=== PATIENT | female | born 1985 | race Caucasian/White ===

== ENCOUNTER → 2017-09-25 | Outpatient (CLI) | payer OTHER ==
--- NOTE | 2017-09-25 09:46 | US ---
EXAMINATION TYPE: US transvaginal DATE OF EXAM: 09/25/2017 COMPARISON: NONE CLINICAL HISTORY: N93.8 DUB. Patient complains of multiple periods per month. TECHNIQUE: Transvaginal (TV) Date of LMP: 09/16/17 EXAM MEASUREMENTS: Uterus: 7.3 x 4.8 x 3.1 cm Endometrial Stripe: 0.7 cm Right Ovary: 2.8 x 1.9 x 1.7 cm Left Ovary: 2.6 x 2.2 x 1.9 cm 1. Uterus: cervical nabothian cyst =0.5 x 0.4 x 0.4 cm. left anterior heterogenous possible leiomyom a = 1.3 x 1.3 x 1.2 cm 2. Endometrium: tiny amount of fluid seen within, likely related to the phase of menses. 3. Right Ovary: wnl, with follicles 4. Left Ovary: with follicles and cyst = 1.4 x 1.4 x 1.3 cm 5. Bilateral Adnexa: wnl 6. Posterior cul-de-sac: wnl IMPRESSION: 1. 1.3 cm left inferior probable leiomyoma. This may be subserosal and further evaluation with pelvic MR could be performed. 2. Scant amount of endometrial fluid, likely related to the phase of menses although correlation with beta hCG is recommended. Endometrium is nonenlarged.
[2017-09-25 16:44] LABS: Cardiolipin Ab IgG Interp NEGATIVE (NEGATIVE); Cardiolipin Ab IgM Interp NEGATIVE (NEGATIVE); Cardiolipin IgA Antibody 0.9 U/mL; Cardiolipin IgM Antibody 0.7 U/mL
== END | disposition home or self-care (01) ==
LOC: RADUSWWP 08:23
PROVIDERS: ATTEND Obstetrics & Gynecology
DX: N93.8 Other specified abnormal uterine and vaginal bleeding (principal); A53.9 Syphilis, unspecified
CPT/HCPCS: 36415; 76830; 86038; 86147; 86780

== ENCOUNTER 2018-05-17 18:09 | Emergency (ER) | payer OTHER ==
[2018-05-17 18:40] VITALS: BP 134/73; PULSE 86; RESP 18; TEMP 99.1
--- NOTE | 2018-05-17 19:05 | ED ---
General Adult HPI - General Chief complaint: Extremity Injury, Lower Stated complaint: Knee Swelling, no injury Time Seen by Provider: 05/17/18 18:55 Source: patient, RN notes reviewed Mode of arrival: ambulatory Limitations: no limitations - History of Present Illness Initial comments: This is a 34-year-old female who presents to the emergency department with chief complaint of left knee pain and swelling. Patient states that she woke up with left knee pain on Thursday night. She states that 1 week prior she did fall on the left knee. She denies any other injuries or trauma. She states that she has been bearing weight and ambulating. She states that for work she is on her feet for 8 hours a day. Denies fever, chills, chest pain, shortness of breath, abdominal pain, nausea or vomiting, numbness or tingling, headache or vision changes. - Related Data Home Medications Medication Instructions Recorded Confirmed No Known Home Medications 07/28/15 07/28/15 Allergies Allergy/AdvReac Type Severity Reaction Status Date / Time No Known Allergies Allergy Verified 07/28/15 10:44 Review of Systems ROS Statement: Those systems with pertinent positive or pertinent negative responses have been documented in the HPI. ROS Other: All systems not noted in ROS Statement are negative. Past Medical History Past Medical History: No Reported History Additional Past Medical History / Comment(s): Congenital hip dysplasia. History of Any Multi-Drug Resistant Organisms: None Reported Past Surgical History: Appendectomy, Joint Replacement, Orthopedic Surgery Additional Past Surgical History / Comment(s): RT hip replacement and multiple hip surgeries Past Anesthesia/Blood Transfusion Reactions: No Reported Reaction Past Psychological History: No Psychological Hx Reported Smoking Status: Former smoker Past Alcohol Use History: None Reported Past Drug Use History: None Reported General Exam - General Exam Comments Initial Comments: General: Awake and alert, well-developed; in no apparent distress. HEENT: Head atraumatic, normocephalic. Pupils are equal, round and reactive to light. Extraocular movements intact. Oropharynx moist without erythema or exudate. Neck: Supple. Normal ROM. Cardiovascular: Regular rate and rhythm. No murmurs, rubs or gallops. Chest symmetrical. Respiratory: Lungs clear to auscultation bilaterally. No wheezes, rales or rhonchi. Normal respiratory effort with no use of accessory muscles. Musculoskeletal: Normal range of motion of the left knee. There is generalized soft tissue swelling. Tenderness on palpation of the medial knee. Positive valgus stress. Sensation is intact. Pedal pulses are 2+ equal and palpable bilaterally. Skin: [place], warm and dry without rashes or lesions. Neurological: Alert and oriented x3. CN II-XII grossly intact. Speech is fluent and answers are appropriate. No focal neuro deficits. Psychiatric: Normal mood and affect. No overt signs of depression or anxiety noted. Limitations: no limitations Course Vital Signs 05/17/18 18:38 Temperature 99.1 F Pulse Rate 86 Respiratory 18 Rate Blood Pressure 134/73 O2 Sat by Pulse 96 Oximetry Medical Decision Making - Medical Decision Making This is a 33-year-old female who presents to the emergency department with chief complaint of left knee pain. Patient reports pain and swelling to the left knee. She is bearing weight and ambulating. On physical examination, there is generalized soft tissue swelling and tenderness to the medial left knee. Patient will be provided with a knee immobilizer and follow-up to orthopedics. An x-ray was obtained which revealed no acute abnormalities. Patient's vital signs are stable and she is in no acute distress. She will be discharged home at this time. She is in agreement and voices understanding. All questions were answered. - Radiology Data Radiology results: report reviewed X-ray left knee impression: Negative left knee exam. Disposition Clinical Impression: Left knee pain Disposition: HOME SELF-CARE Condition: Good Instructions: Knee Pain (ED), Knee Immobilizer (ED) Additional Instructions: Please rest, ice, elevate. Please follow-up with orthopedics for further evaluation. Please follow up with primary care provider within 1-2 days. Return to emergency department if symptoms should worsen or any concerns arise. Is patient prescribed a controlled substance at d/c from ED?: No Referrals: None,Stated [Primary Care Provider] - 1-2 days Diogo Cristobal MD [STAFF PHYSICIAN] - 1-2 days Time of Disposition: 19:35
--- NOTE | 2018-05-17 19:19 | XR ---
EXAMINATION TYPE: XR knee complete LT DATE OF EXAM: 05/17/2018 COMPARISON: NONE HISTORY: Knee pain TECHNIQUE: 3 views FINDINGS: I see no fracture nor dislocation. Knee joint spaces are normal. There is no sign of knee j oint effusion. IMPRESSION: Negative left knee exam.
== END 2018-05-17 19:48 | disposition home or self-care (01) ==
LOC: EC 18:09
DX: M25.562 Pain in left knee (principal); Z87.891 Personal history of nicotine dependence
CPT/HCPCS: 99283; 73562; L1830 ×2

== ENCOUNTER → 2020-09-05 | Outpatient (CLI) | payer OTHER ==
--- NOTE | 2020-09-06 10:17 | MM ---
Reason for exam: screening (asymptomatic). Baseline mammogram. History: Family history of breast cancer in paternal grandmother at age 70 and breast cancer in maternal grandmother at age 63. Took hormonal contraceptives for 5 years beginning at age 17. Physical Findings: Nurse Summary: 2cm nodule in the left breast at 3 o'clock (nurse db). [facility] Diagnostic Mammo w CAD WENDI Bilateral CC and MLO view(s) were taken. XCCL view(s) were taken of the right breast. Technologist: Leslie Brower There are scattered fibroglandular densities. There is no discrete abnormality. Palpable marker left breast 3 o'clock. These results were verbally communicated with the patient and result sheet given to the patient on 09/05/20. ASSESSMENT: Incomplete: need additional imaging evaluation, BI-RAD 0 RECOMMENDATION: Ultrasound of the left breast.
--- NOTE | 2020-09-06 10:19 | USB ---
Reason for exam: additional evaluation requested from abnormal screening. History: Family history of breast cancer in paternal grandmother at age 70 and breast cancer in maternal grandmother at age 63. Took hormonal contraceptives for 5 years beginning at age 17. Physical Findings: Breast exam preformed at baseline screening. US Breast Limited LT Technologist: Leslie Brower Left limited breast ultrasound including focal area of concern, retroareolar and axilla demonstrates no cystic or solid lesion seen. Scanned 3-5 o'clock. These results were verbally communicated with the patient and result sheet given to the patient on 09/05/20. ASSESSMENT: Negative, BI-RAD 1 RECOMMENDATION: Routine screening mammogram of both breasts at age 41. (unless clinical indication to start sooner) Manage on a clinical basis with regard to breast pain and any suspicious palpable areas.
== END | disposition home or self-care (01) ==
LOC: RADMAMWWP 14:47
PROVIDERS: ATTEND Obstetrics & Gynecology
DX: N63.20 Unspecified lump in the left breast, unspecified quadrant (principal); R92.8 Other abnormal and inconclusive findings on diagnostic imaging of breast
CPT/HCPCS: 77066

== ENCOUNTER 2021-02-19 19:26 | Emergency (ER) | payer OTHER ==
[2021-02-19 19:35] VITALS: PULSE 69; RESP 18
[2021-02-19] MEDS ORDERED: KETOROLAC 15 MG/ML 1 ML VIAL IVP STA (19:51)
--- NOTE | 2021-02-19 19:53 | ED ---
Chest Pain HPI - General Chief Complaint: Chest Pain Stated Complaint: Chest pain,SOB Time Seen by Provider: 02/19/21 19:41 Source: patient, RN notes reviewed Mode of arrival: ambulatory Limitations: no limitations - History of Present Illness Initial Comments: This a 35-year-old female presents emergency Department chief complaint of chest discomfort. Patient states that she's had chest discomfort which was worse with movement over the last few days. Patient states today she started having discomfort when she takes a deep breath. She states she does not feel short of breath at rest but states it just hurts. She's been taken Tylenol tonight which has been helping. Patient is a nonsmoker no prior cardiac or lung disease. Denies any history of blood clots. No family history of clotting disorders or cardiac disease. Patient denies any fevers chills cough congestion nausea vomiting diarrhea constipation. - Related Data Home Medications Medication Instructions Recorded Confirmed No Known Home Medications 07/28/15 02/19/21 Allergies Allergy/AdvReac Type Severity Reaction Status Date / Time No Known Allergies Allergy Verified 02/19/21 20:23 Review of Systems ROS Statement: Those systems with pertinent positive or pertinent negative responses have been documented in the HPI. ROS Other: All systems not noted in ROS Statement are negative. EKG Findings - EKG Comments: EKG Findings:: EKG performed at 19:39 normal sinus rhythm rate of 71 [place] 164 QRS 164 QT/QTC 382/415 Past Medical History Past Medical History: No Reported History Additional Past Medical History / Comment(s): Congenital hip dysplasia. History of Any Multi-Drug Resistant Organisms: None Reported Past Surgical History: Appendectomy, Joint Replacement, Orthopedic Surgery Additional Past Surgical History / Comment(s): RT hip replacement and multiple hip surgeries Past Anesthesia/Blood Transfusion Reactions: No Reported Reaction Past Psychological History: No Psychological Hx Reported Smoking Status: Never smoker Past Alcohol Use History: None Reported Past Drug Use History: None Reported General Exam Limitations: no limitations General appearance: alert, in no apparent distress Head exam: Present: atraumatic, normocephalic, normal inspection Eye exam: Present: normal appearance, PERRL, EOMI. Absent: scleral icterus, conjunctival injection, periorbital swelling ENT exam: Present: normal exam, normal oropharynx, mucous membranes moist Neck exam: Present: normal inspection, full ROM. Absent: tenderness, meningismus, lymphadenopathy Respiratory exam: Present: normal lung sounds bilaterally, chest wall tenderness. Absent: respiratory distress, wheezes, rales, rhonchi, stridor Cardiovascular Exam: Present: regular rate, normal rhythm, normal heart sounds. Absent: systolic murmur, diastolic murmur, rubs, gallop, clicks GI/Abdominal exam: Present: soft, normal bowel sounds. Absent: distended, tenderness, guarding, rebound, rigid Course Vital Signs 02/19/21 19:31 Temperature 98.1 F Pulse Rate 69 Respiratory 18 Rate Blood Pressure 108/65 O2 Sat by Pulse 100 Oximetry Chest Pain MDM - MDM X-ray, labs EKG is unremarkable. Patient's symptoms are reproducible more consistent with costochondritis. Patient will continue anti-inflammatories with close follow-up return parameters were discussed. Disposition Clinical Impression: Costochondritis, acute Disposition: HOME SELF-CARE Condition: Stable Instructions (If sedation given, give patient instructions): Costochondritis (ED) Additional Instructions: Please return to the Emergency Department if symptoms worsen or any other concerns. Is patient prescribed a controlled substance at d/c from ED?: No Referrals: None,Stated [Primary Care Provider] - 1-2 days Time of Disposition: 21:11
[2021-02-19 20:05] LABS: Basophils # (A) 0.1 k/uL (0-0.2); Basophils % (A) 1 %; Eosinophils # (A) 0.4 k/uL (0-0.7); Eosinophils % (A) 4 %; HCT 40.7 % (34.0-46.0); HGB 14.1 gm/dL (11.4-16.0); Lymphocytes # (A) 3.5 k/uL (1.0-4.8); Lymphocytes % (A) 34 %; MCH 33.4 pg (25.0-35.0); MCHC 34.7 g/dL (31.0-37.0); MCV 96.2 fL (80.0-100.0); Mean Platelet Volume 7.1; Monocytes # (A) 0.4 k/uL (0-1.0); Monocytes % (A) 4 %; Neutrophils # (A) 5.7 k/uL (1.3-7.7); Neutrophils % (A) 56 %; Platelet Count 278 k/uL (150-450); RBC 4.23 m/uL (3.80-5.40); RDW 12.3 % (11.5-15.5); WBC 10.1 k/uL (3.8-10.6)
[2021-02-19 20:17] LABS: ALT 13 U/L (4-34); AST 22 U/L (14-36); African American GFR (CKD) >90 (>60 ml/min/1.73 sqM); Albumin 4.3 g/dL (3.5-5.0); Alkaline Phosphatase 38 U/L (38-126); Anion Gap 7 mmol/L; Blood Urea Nitrogen 16 mg/dL (7-17); Calcium 9.7 mg/dL (8.4-10.2); Carbon Dioxide 27 mmol/L (22-30); Chloride 105 mmol/L (98-107); Glucose 87 mg/dL (74-99); Lipase 106 U/L (23-300); Magnesium 1.9 mg/dL (1.6-2.3); Non-African American GFR(CKD) >90 (>60 ml/min/1.73 sqM); Potassium 4.7 mmol/L (3.5-5.1); Sodium 139 mmol/L (137-145); Total Bilirubin 0.3 mg/dL (0.2-1.3); Total Protein 6.9 g/dL (6.3-8.2)
[2021-02-19 20:19] LABS: D-Dimer 0.28 mg/L FEU (<0.60); Partial Thromboplastin Time 23.4 sec (22.0-30.0); Prothrombin Time 10.5 sec (9.0-12.0)
--- NOTE | 2021-02-19 20:26 | XR ---
EXAMINATION TYPE: XR chest 2V DATE OF EXAM: 02/19/2021 COMPARISON: NONE HISTORY: Chest pain. TECHNIQUE: Frontal and lateral views of the chest are obtained. FINDINGS: There is no focal air space opacity, pleural effusion, or pneumothorax seen. The cardiac silhouette size is within normal limits. The osseous structures are intact. IMPRESSION: No acute cardiopulmonary process.
[2021-02-19 21:36] VITALS: BP 103/63; TEMP 98.6
== END 2021-02-19 21:36 | disposition home or self-care (01) ==
LOC: EC 19:26
DX: M94.0 Chondrocostal junction syndrome [Tietze] (principal)
CPT/HCPCS: 36415; 93005; 85379; 80053; 83690; 83735; 84484; 85025; 85610; 85730; 71046; 96374; 99285; J1885

== ENCOUNTER 2021-07-22 08:03 | Emergency (ER) | payer OTHER ==
[2021-07-22 08:15] VITALS: TEMP 98.1
[2021-07-22] MEDS ORDERED: KETOROLAC 30 MG/ML 1 ML VIAL IVP STA (09:42)
--- NOTE | 2021-07-22 09:59 | XR ---
EXAMINATION TYPE: XR chest 2V DATE OF EXAM: 07/22/2021 COMPARISON: 02/19/2021 HISTORY: Chest pain TECHNIQUE: Frontal and lateral views of the chest are obtained. FINDINGS: There is no focal air space opacity. No evidence for pneumothorax. No pleural effusion. The cardiac silhouette size is within normal limits. The osseous structures are grossly intact. IMPRESSION: 1. No acute cardiopulmonary process.
--- NOTE | 2021-07-22 10:06 | ED ---
Chest Pain HPI - General Chief Complaint: Chest Pain Stated Complaint: chest pain Time Seen by Provider: 07/22/21 08:59 Source: patient, RN notes reviewed Mode of arrival: ambulatory Limitations: no limitations - History of Present Illness Initial Comments: This a 36-year-old female presents emergency Department chief complaint of chest pain. Patient states been having on and off issues for last several months. Patient states his last time been present for 3-4 weeks she has pain with movement better at rest. States similar centralized chest worse with arm movement, sitting up and laying back. Patient denies any fevers chills no increasing cough. She does admit that she is a smoker. Patient has no history of PE or DVT denies any prior cardiac disease, no family history of cardiac disease - Related Data Home Medications Medication Instructions Recorded Confirmed Ibuprofen [Motrin Ib] 400 mg PO Q8H PRN 07/22/21 07/22/21 Allergies Allergy/AdvReac Type Severity Reaction Status Date / Time No Known Allergies Allergy Verified 07/22/21 10:12 Review of Systems ROS Statement: Those systems with pertinent positive or pertinent negative responses have been documented in the HPI. ROS Other: All systems not noted in ROS Statement are negative. EKG Findings - EKG Comments: EKG Findings:: EKG 8:25 rate of 66 [place] 164 QRS 84 QT/QTC 394/413 Past Medical History Past Medical History: No Reported History Additional Past Medical History / Comment(s): Congenital hip dysplasia, chest pain History of Any Multi-Drug Resistant Organisms: None Reported Past Surgical History: Appendectomy, Joint Replacement, Orthopedic Surgery Additional Past Surgical History / Comment(s): RT hip replacement and multiple hip surgeries Past Anesthesia/Blood Transfusion Reactions: No Reported Reaction Past Psychological History: No Psychological Hx Reported Smoking Status: Current every day smoker Past Alcohol Use History: None Reported Past Drug Use History: Marijuana General Exam Limitations: no limitations General appearance: alert, in no apparent distress Head exam: Present: atraumatic, normocephalic, normal inspection Eye exam: Present: normal appearance, PERRL, EOMI. Absent: scleral icterus, conjunctival injection, periorbital swelling ENT exam: Present: normal exam, normal oropharynx, mucous membranes moist Neck exam: Present: normal inspection, full ROM. Absent: tenderness, meningismus, lymphadenopathy Respiratory exam: Present: normal lung sounds bilaterally, chest wall tendernes s. Absent: respiratory distress, wheezes, rales, rhonchi, stridor Cardiovascular Exam: Present: regular rate, normal rhythm, normal heart sounds. Absent: systolic murmur, diastolic murmur, rubs, gallop, clicks GI/Abdominal exam: Present: soft, normal bowel sounds. Absent: distended, tenderness, guarding, rebound, rigid Course Vital Signs 07/22/21 07/22/21 08:11 10:09 Temperature 98.1 F Pulse Rate 74 56 L Respiratory 18 15 Rate Blood Pressure 123/76 111/66 O2 Sat by Pulse 99 98 Oximetry Chest Pain MDM - MDM This a 36-year-old presented for chest wall pain. Is reproducible pain with palpation, worse with movement. This is an ongoing issue. Patient did have. Labs, EKG and chest x-ray which is unremarkable. Patient we discharged to outpatient return parameters discussed. Disposition Clinical Impression: Chest wall pain Disposition: HOME SELF-CARE Condition: Stable Instructions (If sedation given, give patient instructions): Chest Wall Pain (ED), Costochondritis (ED) Additional Instructions: Please return to the Emergency Department if symptoms worsen or any other concerns. Is patient prescribed a controlled substance at d/c from ED?: No Referrals: None,Stated [Primary Care Provider] - 1-2 days Time of Disposition: 11:26
[2021-07-22 10:09] LABS: Basophils % (A) 0 %; Eosinophils # (A) 0.3 k/uL (0-0.7); Eosinophils % (A) 4 %; HCT 43.1 % (34.0-46.0); HGB 14.9 gm/dL (11.4-16.0); Lymphocytes # (A) 1.6 k/uL (1.0-4.8); Lymphocytes % (A) 21 %; MCH 33.6 pg (25.0-35.0); MCHC 34.6 g/dL (31.0-37.0); MCV 96.9 fL (80.0-100.0); Mean Platelet Volume 7.6; Monocytes # (A) 0.3 k/uL (0-1.0); Monocytes % (A) 4 %; Neutrophils # (A) 5.2 k/uL (1.3-7.7); Neutrophils % (A) 69 %; Platelet Count 346 k/uL (150-450); RBC 4.45 m/uL (3.80-5.40); RDW 12.6 % (11.5-15.5); WBC 7.6 k/uL (3.8-10.6)
[2021-07-22 10:26] LABS: ALT 12 U/L (4-34); AST 23 U/L (14-36); African American GFR (CKD) >90 (>60 ml/min/1.73 sqM); Albumin 4.4 g/dL (3.5-5.0); Alkaline Phosphatase 33 U/L (38-126); Anion Gap 8 mmol/L; Blood Urea Nitrogen 13 mg/dL (7-17); Calcium 9.8 mg/dL (8.4-10.2); Carbon Dioxide 24 mmol/L (22-30); Chloride 106 mmol/L (98-107); Glucose 87 mg/dL (74-99); Lipase 207 U/L (23-300); Non-African American GFR(CKD) >90 (>60 ml/min/1.73 sqM); Potassium 4.6 mmol/L (3.5-5.1); Sodium 138 mmol/L (137-145); Total Bilirubin 0.7 mg/dL (0.2-1.3); Total Protein 7.6 g/dL (6.3-8.2)
[2021-07-22 10:30] LABS: Partial Thromboplastin Time 24.3 sec (22.0-30.0); Prothrombin Time 10.7 sec (9.0-12.0)
[2021-07-22 11:34] VITALS: BP 107/62; PULSE 84; RESP 18
== END 2021-07-22 11:40 | disposition home or self-care (01) ==
LOC: EC 08:03
DX: R07.89 Other chest pain (principal); F17.200 Nicotine dependence, unspecified, uncomplicated
CPT/HCPCS: 36415; 93005; 85379; 83880; 80053; 83690; 83735; 84484; 85025; 85610; 85730; 71046; 99285; 96374; J1885